=== PATIENT | female | born 1970 | race American Indian/Alaskan Native ===

== ENCOUNTER 2017-05-25 13:09 | Emergency (ER) | payer BC ==
[2017-05-25 13:24] VITALS: BP 157/99
--- NOTE | 2017-05-25 14:41 | Emergency Department Report ---
Chief Complaint: Chest Pain Stated Complaint: CP Time Seen by Provider: 05/25/17 14:40 - HPI History of Present Illness: Patient here reports chest pain that started prior to arrival. She says is located in the left side of her chest and it goes through her chest. Since her back. She says she has a family history of heart disease and [place] and she has personal history of high blood pressure. She said her blood pressure is controlled. Denies any similar episode of chest pain. Denies any shortness of breath. Denies any coughing or difficulty breathing. Pain is 8 out of 10. No [id number] medication taken. - ROS Review of Systems: All systems are negative unless stated in HPI above - Exam Vital Signs: Vital Signs 05/25/17 13:20 Temperature 98 F Pulse Rate 77 Respiratory 20 Rate Blood Pressure 157/99 O2 Sat by Pulse 100 Oximetry Physical Exam: This is a 47-year-old female well-nourished well-developed in no acute distress. Cardiovascular: S1, S2. Regular rate rhythm. Negative murmur. No chest wall tenderness. MSE screening note: Focused history and physical exam performed. Due to findings the following was ordered:SEE MDM ED Medical Decision Making - Medical Decision Making MDM: Patient screened by provider in triage area. Appropriate protocol initiated and patient to be seen BY ED PROVIDER ED Disposition for MSE Condition: Stable
[2017-05-25 15:18] LABS: Basophils % (Auto) 1.9 % (0.0-1.8); Eosinophils % (Auto) 1.3 % (0.0-4.3); Hematocrit 44.9 % (30.3-42.9); Hemoglobin 15.2 gm/dl (10.1-14.3); Mean Corpuscular HGB Conc 34 % (30-34); Mean Corpuscular Hemoglobin 29 pg (28-32); Mean Corpuscular Volume 86 fl (79-97); Platelet Count 299 K/mm3 (140-440); Red Blood Count 5.23 M/mm3 (3.65-5.03); Red Cell Distribution Width 14.3 % (13.2-15.2); White Blood Count 7.5 K/mm3 (4.5-11.0)
[2017-05-25 15:26] LABS: Anion Gap 17 mmol/L; BUN/Creatinine Ratio 15; Blood Urea Nitrogen 15 mg/dL (7-17); Calcium 9.5 mg/dL (8.4-10.2); Carbon Dioxide 26 mmol/L (22-30); Chloride 95.2 mmol/L (98-107); Glucose 173 mg/dL (65-100); Potassium 3.3 mmol/L (3.6-5.0); Sodium 135 mmol/L (137-145)
== END 2017-05-26 06:37 | disposition left against medical advice (07) ==
LOC: ED 13:09
DX: R07.89 Other chest pain (principal); Z53.21 Procedure and treatment not carried out due to patient leaving prior to being seen by health care provider
CPT/HCPCS: 36415; 80048; 84484; 84703; 85025; 93005; 93010